=== PATIENT | male | born 1940 | race Caucasian/White ===

== ENCOUNTER 2018-06-25 05:36 | Outpatient (CLI) | payer MEDICARE ==
[~2018-06-25] VITALS: Ht 180.3 cm; Wt 82.6 kg
[~2018-06-25 05:36] MED LIST: EZET10TA5 PO; FINA5TAB6 PO; MULT-963 PO
[2018-06-25] MEDS ORDERED: ATOR20TA66 PO (15:25)
[2018-06-25] MEDS ORDERED: LORA10TA7 PO (15:25)
[2018-06-25] MEDS ORDERED: MULT-35 PO (15:25)
[2018-06-25] MEDS ORDERED: FINA5TAB6 PO (15:25)
== END 2018-06-25 15:34 ==
LOC: PREOP 05:36
PROVIDERS: ATTEND Surgery
DX: Z01.818 Encounter for other preprocedural examination (principal); Z12.11 Encounter for screening for malignant neoplasm of colon

== ENCOUNTER 2018-07-01 08:14 | Day surgery (SDC) | payer MEDICARE ==
[~2018-07-01] VITALS: Ht 180.3 cm; Wt 82.6 kg
[~2018-07-01 08:14] MED LIST changes: +ATOR20TA66 PO; +LORA10TA7 PO; +MULT-35 PO
--- OUTSIDE RECORDS SUMMARY | 2018-07-01 08:18 | XMS REPORT | Continuity of Care Document ---
Author Author [facility] Organization [facility] Address Unknown Phone Unavailable Allergies Active Description Code Type Severity Reaction Onset Reported/Identified Relationship to Patient Clinical Status Yes No Allergy Information Available [id number] Drug Allergy Unknown N/A 2011 Medications There is no data. Problems Date Dx Coded Attending Type Code Diagnosis Diagnosed By 10/16/2012 Ot 211.3 10/16/2012 Ot 562.10 10/16/2012 Ot V76.51 01/10/2016 Ot 603.9 01/10/2016 Ot 604.90 01/10/2016 Ot V72.84 01/26/2016 MARYLU ROJO MD Ot M77.31 02/20/2016 MARYLU ROJO MD Ot M77.31 Procedures There is no data. Results There is no data. Encounters ACCT No. Visit Date/Time Discharge Status Pt. Type Provider Facility Loc./Unit Complaint [id number] 01/10/2016 10:06:00 01/10/2016 23:59:59 CLS Outpatient MARYLU ROJO MD [facility] RAD [id number] 07/01/2018 09:30:00 PEN Preadmit SHERIF SPAULDING DO [facility] ENDO SCREENING [id number] 10/16/2012 11:58:00 Document Registration [id number] 10/14/2012 07:34:00 Document Registration [id number] 09/12/2011 12:59:00 Document Registration
[2018-07-01] MEDS ORDERED: LACTATED RINGERS 1,000 ML IV ONE (08:21)
[2018-07-01] MEDS ORDERED: LACTATED RINGERS 1,000 ML IV STA (08:22)
[2018-07-01 08:32] VITALS: BP 136/72
--- NOTE | 2018-07-01 09:03 | Progress Note-Pre Operative ---
Pre-Operative Progress Note H&P Reviewed The H&P was reviewed, patient examined and no changes noted. Date Seen by Provider: Jul 01, 2018 Time Seen by Provider: 09:02 Date H&P Reviewed: Jul 01, 2018 Time H&P Reviewed: 09:02 Pre-Operative Diagnosis: screening colonoscopy SHERIF SPAULDING DO Jul 01, 2018 09:03
[2018-07-01] MEDS ORDERED: PROPOFOL INJECTION 50 ML IV ONE (10:41)
--- NOTE | 2018-07-01 11:17 | Discharge Inst-Simple/Standard ---
Discharge Inst-Standard Patient Instructions/Follow Up Plan of Care/Instructions/FU: Does not need repeat colonoscopy unless you have bowel issues, be seen at that time. Activity as Tolerated: Yes Discharge Diet: Regular Diet (high fiber) SHERIF SPAULDING DO Jul 01, 2018 11:17
--- NOTE | 2018-07-01 11:23 | Progress Note-Post Operative ---
Post-Operative Progess Note Surgeon (s)/Head Of Ict (s) Surgeon SHERIF SPAULDING DO Head Of Ict: na Pre-Operative Diagnosis screening colonoscopy Post-Operative Diagnosis diverticulosis Procedure & Operative Findings Date of Procedure 07/01/18 Procedure Performed/Findings colonoscopy Anesthesia Type per principal architectural firm Estimated Blood Loss Estimated blood loss (mL): min Specimens/Packing Specimens Removed na SHERIF SPAULDING DO Jul 01, 2018 11:23
[2018-07-01 11:35] VITALS: BP 95/57
[2018-07-01 11:55] VITALS: BP 121/73
[2018-07-01 11:59] VITALS: BP 121/73
--- NOTE | 2018-07-01 12:20 | Anesthesia-General Post-Op ---
MAC Patient Condition Mental Status/LOC: Same as Preop Cardiovascular: Satisfactory Nausea/Vomiting: Absent Respiratory: Satisfactory Pain: Controlled Complications: Absent Post Op Complications Complications None Follow Up Care/Instructions Patient Instructions None needed. Anesthesiology Discharge Order Discharge Order Patient is doing well, no complaints, stable vital signs, no apparent adverse anesthesia problems. No complications reported per nursing. DANIELE WHEELER CRNA Jul 01, 2018 12:20
--- NOTE | 2018-07-01 16:15 | OPERATIVE REPORT ---
DATE OF SERVICE: PREOPERATIVE DIAGNOSIS: Screening colonoscopy. POSTOPERATIVE DIAGNOSIS: Normal colon diverticulosis. PROCEDURE: Colonoscopy. SURGEON: Sherif Leyva DO ANESTHESIA: Per DIFFERENTIAL SPECIALIST. ESTIMATED BLOOD LOSS: None. COMPLICATIONS: None. INDICATIONS: The patient is a 77-year-old male due for screening colonoscopy. He wished to proceed after discussing risks and benefits. Consent was signed in the chart. PROCEDURE IN DETAIL: The patient was taken to the endoscopy suite, placed in left lateral recumbent position. Time-out was performed. Digital rectal exam was performed. There were no palpable polyps, masses or ulcerations. The scope was inserted in the rectum and advanced all the way to the cecum with minimal difficulty. Prep was adequate. Scope was then slowly retracted back. There were no polyps, masses or ulcerations in the cecum, ascending, transverse, descending and sigmoid colon. the sigmoid colon, there was a minimal amount of diverticulosis present. Scope was continued to be slowly retracted back into the rectum where it was also retroflexed noting no other pathology. Scope was returned to its normal position, slowly withdrawn until completely removed. The patient tolerated the procedure well without complications. He was taken to the recovery room in stable condition. RECOMMENDATIONS: The patient does not need a repeat colonoscopy unless he wishes to proceed with this and recommendation should be 10 years unless family history or personal history of colon polyps, which would then be 5 years. If he has any problems prior to that, he should be reevaluated at that time. Job ID: [id number] DocumentID: [id number] Dictated Date: 07/01/2018 11:19:14 [employer] Specialist Date: 07/01/2018 16:14:17 Dictated By: SHERIF LEYVA DO
== END 2018-07-01 12:05 | disposition home or self-care (01) ==
LOC: ENDO 08:14
PROVIDERS: ATTEND Surgery
DX: Z12.11 Encounter for screening for malignant neoplasm of colon (principal); K57.30 Diverticulosis of large intestine without perforation or abscess without bleeding